=== PATIENT | male | born 1940 | race Two or more races ===

== ENCOUNTER 2020-09-17 11:55 | Outpatient (REF) | payer MEDICARE, SELFPAY ==
[2020-09-17 13:42] LABS: Prostate Specific Antigen < 0.05 ng/mL (<0.05-4.0)
== END 2020-09-17 11:56 | disposition home or self-care (01) ==
LOC: HO.LAB 11:55
PROVIDERS: PCP Internal Medicine; Visit Provider Urology
DX: C61 Malignant neoplasm of prostate (principal); Z12.5 Encounter for screening for malignant neoplasm of prostate
CPT/HCPCS: 36415; 84153

== ENCOUNTER → 2020-09-20 12:55 | Outpatient (BNVA) | payer MEDICARE, SELFPAY | PROVIDERS: Visit Provider Urology | DX: C61 Malignant neoplasm of prostate (principal) | CPT/HCPCS: 99212 ==

== ENCOUNTER 2020-11-12 10:07 | Outpatient (REF) | payer MEDICARE, SELFPAY ==
[2020-11-12 10:39] LABS: MANUAL DIFF FLAG NO
[2020-11-12 10:46] LABS: Basophils Percent Auto 0.4 % (0-2); Eosinophils Absolute Auto 0.1 X10*3/uL (0.0-0.4); Eosinophils Percent Auto 2.7 % (0-4); Hematocrit 37.7 % (42-52); Hemoglobin 11.7 g/dl (14.0-18.0); Imm Gran Abs Auto 0.11 X10*3/uL (0.00-0.03); Imm Gran Pct Auto 2.3 % (0.0-0.4); Lymphocytes Absolute Auto 2.7 X10*3/uL (1.2-4.9); Lymphocytes Percent Auto 56.2 % (20-40); Mean Corpuscular Hemoglobin 27.4 pg (27.0-33.0); Mean Corpuscular Volume 88.3 fL (80-98); Mean Platelet Volume 10.5 fL (9.4-12.4); Monocytes Absolute Auto 0.8 X10*3/uL (0.1-1.2); Monocytes Percent Auto 17.1 % (2-11); Neutrophils Percent Auto 21.3 % (45-73); Platelet Count 163 X10*3/uL (160-400); Red Blood Count 4.27 X10*6/uL (4.60-5.80); Red Cell Distribution Width 13.4 % (11.0-16.0); White Blood Count 4.8 X10*3/uL (4.8-10.8)
[2020-11-12 11:16] LABS: Anion Gap 13 (12-20); Blood Urea Nitrogen 10 mg/dL (9-16); Calcium 9.2 mg/dL (8.4-10.2); Carbon Dioxide 25 mmol/L (22-29); Chloride 103 mmol/L (96-108); Estimated Glomerular Filt Rate > 60; Sodium 137 mmol/L (135-145)
[2020-11-12 11:45] LABS: Renal w Reflex Lab Use Only Order verified
== END 2020-11-12 10:08 | disposition home or self-care (01) ==
LOC: HO.LAB 10:07
PROVIDERS: PCP Internal Medicine; Visit Provider Internal Medicine Nephrology
DX: I12.9 Hypertensive chronic kidney disease with stage 1 through stage 4 chronic kidney disease, or unspecified chronic kidney disease (principal); N18.30 Chronic kidney disease, stage 3 unspecified
CPT/HCPCS: 36415; 80051; 82310; 82565; 84100; 84520; 85025

== ENCOUNTER 2021-03-18 14:40 | Outpatient (REF) | payer MEDICARE, SELFPAY ==
[2021-03-18 16:18] LABS: Prostate Specific Antigen < 0.05 ng/mL (<0.05-4.0)
== END 2021-03-18 14:41 | disposition home or self-care (01) ==
LOC: HO.LAB 14:40
PROVIDERS: PCP Internal Medicine; Visit Provider Urology
DX: Z12.5 Encounter for screening for malignant neoplasm of prostate (principal); C61 Malignant neoplasm of prostate
CPT/HCPCS: 36415; 84153

== ENCOUNTER → 2021-03-22 12:51 | Outpatient (BNVA) | payer MEDICARE, SELFPAY | PROVIDERS: Visit Provider Urology | DX: C61 Malignant neoplasm of prostate (principal) | CPT/HCPCS: 51798; 99212 ==

== ENCOUNTER 2021-05-20 12:52 | Outpatient (REF) | payer MEDICARE, SELFPAY ==
[2021-05-20 13:58] LABS: Hematocrit 36.4 % (42-52); Hemoglobin 11.5 g/dl (14.0-18.0); Mean Corpuscular HGB Conc 31.6 g/dl (31.0-36.0); Mean Corpuscular Hemoglobin 27.4 pg (27.0-33.0); Mean Corpuscular Volume 86.9 fL (80-98); Platelet Count 197 X10*3/uL (160-400); Red Blood Count 4.19 X10*6/uL (4.60-5.80); Red Cell Distribution Width 13.8 % (11.0-16.0); White Blood Count 6.2 X10*3/uL (4.8-10.8)
[2021-05-20 14:18] LABS: Anion Gap 11 (12-20); Blood Urea Nitrogen 9 mg/dL (9-16); Calcium 9.3 mg/dL (8.4-10.2); Carbon Dioxide 23 mmol/L (22-29); Chloride 103 mmol/L (96-108); Estimated Glomerular Filt Rate > 60; Potassium 3.9 mmol/L (3.3-5.1); Sodium 133 mmol/L (135-145)
[2021-05-20 18:30] LABS: Microalbum/Creatinine Ratio Ur 15.5 ug/mg cr; Protein/Creatinine Ratio, Ur 0.06 (<0.2); Total Protein Urine Random 9 mg/dL (<12)
[2021-05-21 16:16] LABS: Calcium (PTHI) 9.5 mg/dL (8.6-10.3); PTHI 29 pg/mL (14-64)
== END 2021-05-20 12:53 | disposition home or self-care (01) ==
LOC: HO.LAB 12:52
PROVIDERS: PCP Internal Medicine; Visit Provider Internal Medicine Nephrology
DX: I10 Essential (primary) hypertension (principal); N18.31 Chronic kidney disease, stage 3a
CPT/HCPCS: 36415; 80051; 82043; 82310; 82565; 83970; 84156; 84520; 85027

== ENCOUNTER 2021-09-23 10:27 | Outpatient (REF) | payer MEDICARE, SELFPAY ==
[2021-09-23 11:49] LABS: Prostate Specific Antigen < 0.05 ng/mL (<0.05-4.0)
== END 2021-09-23 10:28 | disposition home or self-care (01) ==
LOC: HO.LAB 10:27
PROVIDERS: PCP Internal Medicine; Visit Provider Urology
DX: Z12.5 Encounter for screening for malignant neoplasm of prostate (principal); C61 Malignant neoplasm of prostate
CPT/HCPCS: 36415; 84153

== ENCOUNTER → 2021-11-22 13:50 | Outpatient (BNVA) | payer MEDICARE, SELFPAY | PROVIDERS: PCP Internal Medicine; Visit Provider Urology | DX: C61 Malignant neoplasm of prostate (principal) | CPT/HCPCS: 99212 ==

== ENCOUNTER 2022-01-06 11:04 | Outpatient (REF) | payer MEDICARE, SELFPAY ==
[2022-01-06 12:12] LABS: Anion Gap 11 (12-20); Blood Urea Nitrogen 10 mg/dL (9-16); Calcium 9.5 mg/dL (8.4-10.2); Carbon Dioxide 23 mmol/L (22-29); Chloride 105 mmol/L (96-108); Estimated Glomerular Filt Rate 59; Potassium 3.7 mmol/L (3.3-5.1); Sodium 135 mmol/L (135-145)
[2022-01-06 12:47] LABS: Creatinine Urine 150.71 mg/dL; Protein/Creatinine Ratio, Ur 0.08 (<0.2); Total Protein Urine Random 12 mg/dL (<12)
== END 2022-01-06 11:05 | disposition home or self-care (01) ==
LOC: HO.LAB 11:04
PROVIDERS: PCP Internal Medicine; Visit Provider Internal Medicine Nephrology
DX: I10 Essential (primary) hypertension (principal); N18.31 Chronic kidney disease, stage 3a
CPT/HCPCS: 36415; 80051; 82310; 82565; 84156; 84520

== ENCOUNTER 2022-06-24 12:53 | Emergency (ER) | payer MEDICARE, SELFPAY ==
--- NOTE | ~2022-06-24 | XR_ITS ---
EXAMINATION: XR KNEE, LEFT CLINICAL INFORMATION: Swelling COMPARISON: None TECHNIQUE: Four views of the left knee. FINDINGS: Advanced lateral joint space narrowing with marginal spurring. Moderate medial joint space noted. Moderate joint effusion. There is patellofemoral arthritic changes well. No fracture or destructive process. Alignment preserved. XR/XR knee LT 2V IMPRESSION: Multi compartmental degenerative change.
[2022-06-24 13:32] VITALS: BP 139/70; PULSE 97; RESP 18; TEMP 37.1; O2SAT 97
[2022-06-24 13:36] VITALS: BP 140/28; PULSE 96; O2SAT 97
--- NOTE | 2022-06-24 13:43 | ED_ITS ---
HPI - Extremity Injury (Lower) General Chief Complaint: Extremity Injury, Lower <Nadya Samayoa MD - Last Filed: 06/24/22 16:21> Stated Complaint: L KNEE SWELLING,NO INJURY <Nadya Samayoa MD - Last Filed: 06/24/22 16:21> Time Seen by Provider: 06/24/22 13:30 <Nadya Samayoa MD - Last Filed: 06/24/22 16:21> Source: patient and family <Nadya Samayoa MD - Last Filed: 06/24/22 16:21> Mode of arrival: EMS <Nadya Samayoa MD - Last Filed: 06/24/22 16:21> History of Present Illness HPI Narrative: 82-year-old male with history of hypertension presents via EMS with worsening left knee swelling and pain and he denies any traumatic injury but states that this has happened previously. Patient denies any fever, chills and is unsure about any history of gout. <Nadya Samayoa MD - Last Filed: 06/24/22 16:21> Related Data Home Medications: Home Medications Medication Instructions Recorded Confirmed amlodipine 5 mg tablet 5 mg PO DAILY 11/22/21 ferrous sulfate 325 mg (65 mg 325 mg PO BID 11/22/21 iron) tablet (FeroSul) <Nadya Samayoa MD - Last Filed: 06/24/22 16:21> Allergies/Adverse Reactions: Allergies Allergy/AdvReac Type Severity Reaction Status Date / Time Penicillins [PENICILLINS] Allergy Severe EYES Verified 11/22/21 13:57 SWELLING penicillin V Allergy Unknown rash Verified 11/22/21 13:57 <Nadya Samayoa MD - Last Filed: 06/24/22 16:21> Review of Systems Review of Systems: Pertinent positives and negatives as stated in HPI 10 point review of systems is otherwise negative. <Nadya Samayoa MD - Last Filed: 06/24/22 16:21> [facility] Past Medical History Source: nursing notes reviewed <Nadya Samayoa MD - Last Filed: 06/24/22 16:21> Medical History: Medical History BPH (benign prostatic hyperplasia) Prostate cancer Prostate cancer <Nadya Samayoa MD - Last Filed: 06/24/22 16:21> Surgical History: Surgical History History of prostate surgery <Nadya Samayoa MD - Last Filed: 06/24/22 16:21> Social History Social History: Social History Advance Directives: No Advance Directives Information Provided: Yes <Nadya Samayoa MD - Last Filed: 06/24/22 16:21> Physical Exam Vital Signs: Vital Signs: Last Vital Signs Temp 98.7 F 06/24/22 13:32 Pulse 97 06/24/22 13:32 Resp 18 06/24/22 13:32 BP 139/70 06/24/22 13:32 Pulse Ox 97 06/24/22 13:32 O2 Del Method 06/24/22 13:32 BMI result Body Mass Index 0.0 VITAL SIGNS: Reviewed. GENERAL: Well developed, well nourished, in no acute distress. HEAD: Normocephalic/atraumatic EYES: PERRLA, EOMI EARS: Ext canals without abnormality OROPHARYNX: no oral lesions noted, posterior pharynx clear LUNGS: Normal breath sounds. No adventitious sounds or accessory muscle use. SpO2<97> CARDIOVASCULAR: Regular rate and rhythm without noted murmurs ABDOMEN: Soft, non-tender, non-distended with bowel sounds. MUSCULOSKELETAL: No tenderness, deformities, but large left knee effusion without erythema but tenderness to palpation and noted tactile warmth EXTREMITIES: No cyanosis, clubbing or edema. SKIN: Inspection of the skin reveals no rashes NEUROLOGIC: Alert and oriented x 4. Strength and sensation to light touch were grossly intact x 4. <Nadya Samayoa MD - Last Filed: 06/24/22 16:21> Vital Signs: Last Vital Signs Temp 98.7 F 06/24/22 13:32 Pulse 97 06/24/22 13:32 Resp 18 06/24/22 13:32 BP 139/70 06/24/22 13:32 Pulse Ox 97 06/24/22 13:32 O2 Del Method 06/24/22 13:32 BMI result Body Mass Index 0.0 <PASTORA Wiseman - Last Filed: 06/24/22 14:42> Course Course Course Narrative: 82-year-old male with history and clinical presentation most consistent w ith knee effusion related to underlying arthritis and low clinical suspicion for septic or gout etiology. Will obtain imaging and then drain. Large effusion noted on imaging, midlevel provider aspirated 61 cc from the patient's knee and applied a compression dressing. <Nadya Samayoa MD - Last Filed: 06/24/22 16:21> MDM - Extremity Injury (Lower) Lab Data Labs: Lab Results 06/24/22 Range/Units 14:51 Synovial Source L knee Synovial WBC 58.160 X10*3/uL Synovial RBC 0.004 X10*6/uL Synovial Neutrophils 95 % Synovial Lymphocytes 5 % <Nadya Samayoa MD - Last Filed: 06/24/22 16:21> Lab Results 06/24/22 Range/Units 14:51 Synovial Source L knee Synovial WBC 58.160 X10*3/uL Synovial RBC 0.004 X10*6/uL Synovial Neutrophils 95 % Synovial Lymphocytes 5 % <PASTORA Wiseman - Last Filed: 06/24/22 14:42> Procedures Joint Aspiration/Injection Joint Asp./Inject. 1: Time Out Performed: Yes <PASTORA Wiseman - Last Filed: 06/24/22 14:42> Side of body: left <PSATORA Wiseman - Last Filed: 06/24/22 14:42> Joint Aspirated: knee <PASTORA Wiseman - Last Filed: 06/24/22 14:42> Ultrasound Guidance: Yes <PASTORA Wiseman - Last Filed: 06/24/22 14:42> Local Anesthetic: lidocaine 1% <PASTORA Wiseman - Last Filed: 06/24/22 14:42> Amount of anesthesia used (mL): 4 <PASTORA Wiseman - Last Filed: 06/24/22 14:42> Needle Size Used: 18G <PASTORA Wiseman - Last Filed: 06/24/22 14:42> Fluid Obtained: clear <PASTORA Wiseman - Last Filed: 06/24/22 14:42> Total fluid obtained (mL): 61 <PASTORA Wiseman - Last Filed: 06/24/22 14:42> Patient Tolerated Procedure: well and no complications <PASTORA Wiseman - Last Filed: 06/24/22 14:42> Complications: none <PASTORA Wiseman - Last Filed: 06/24/22 14:42> Discharge Plan Discharge Clinical Impression: Effusion of knee joint, left <Nadya Samayoa MD - Last Filed: 06/24/22 16:21> Patient Disposition: Home, Self-Care <Nadya Samayoa MD - Last Filed: 06/24/22 16:21> Instructions: Swollen Knee Joint (ED) <Nadya Samayoa MD - Last Filed: 06/24/22 16:21> Additional Instructions: You have no fractures, you had a large amount of fluid on your knee which was removed. Keep Mauro wrap on for comfort/compression, please have close follow-up with [facility]. Ice. If symptoms persist or worsen, area begins look infected, is increasingly swollen return to the emergency department <Nadya Samayoa MD - Last Filed: 06/24/22 16:21> Prescriptions: No Action amlodipine 5 mg tablet 5 mg PO DAILY ferrous sulfate [FeroSul] 325 mg (65 mg iron) tablet 325 mg PO BID <Nadya Samayoa MD - Last Filed: 06/24/22 16:21> Referrals: [facility] [place] Orthopedic Surgeons [Provider Group] - 5 days <Nadya Samayoa MD - Last Filed: 06/24/22 16:21>
[2022-06-24] MEDS: Lidocaine HCl 1 % MPF 5 ML VIAL INFILTRATI (14:12)
[2022-06-24 15:00] LABS: Source Synovial Fluid L knee
[2022-06-24] MEDS: Lidocaine HCl 2 % MPF 5 ML VIAL INFILTRATI (15:32)
[2022-06-24] MEDS: Triamcinolone Acetonide 40 MG/ML VIAL 10 MG INTRAARTIC (15:32)
[2022-06-24 15:54] LABS: BF Shift QC OK YES; Man Diluent Bkgrd OK YES; RBC Synovial Fluid 0.004 X10*6/uL
[2022-06-24 15:55] LABS: MN% 9.7 %; PMN% 90.3 %
[2022-06-24 16:17] LABS: Lymphocytes Synovial Fluid 5 %; Neutrophils Synovial Fluid 95 %
[2022-06-25 00:28] LABS: Glucose Synovial Fluid 39 MG/DL; Total Protein Synovial Fluid 5.3 GM/DL
== END 2022-06-24 17:21 | disposition home or self-care (01) ==
PROVIDERS: Physician Assistant; Emergency Provider Student in an Organized Health Care Education/Training Program; PCP Internal Medicine
DX: M25.462 Effusion, left knee (principal); M25.562 Pain in left knee; M79.662 Pain in left lower leg
CPT/HCPCS: 20611; 73560; 82945; 84157; 87070; 87073; 87205; 89051; 89060; 99282; 99285; J3300

== ENCOUNTER 2022-07-07 10:16 | Outpatient (REF) | payer MEDICARE, SELFPAY ==
[2022-07-07 10:43] LABS: MANUAL DIFF FLAG NO
[2022-07-07 11:38] LABS: Basophils Percent Auto 0.2 % (0-2); Eosinophils Percent Auto 0.3 % (0-4); Hematocrit 36.9 % (42.0-52.0); Hemoglobin 11.6 g/dl (14.0-18.0); Imm Gran Pct Auto 1.6 % (0.0-0.4); Lymphocytes Absolute Auto 2.9 X10*3/uL (1.2-4.9); Lymphocytes Percent Auto 46.7 % (20-40); Mean Corpuscular HGB Conc 31.4 g/dl (31.0-36.0); Mean Corpuscular Hemoglobin 27.3 pg (27.0-33.0); Mean Corpuscular Volume 86.8 fL (80.0-98.0); Mean Platelet Volume 11.2 fL (9.4-12.4); Monocytes Absolute Auto 1.1 X10*3/uL (0.1-1.2); Monocytes Percent Auto 17.5 % (2-11); Neutrophils Absolute Auto 2.1 x10*3/uL (2.0-8.3); Neutrophils Percent Auto 33.7 % (45-73); Platelet Count 173 X10*3/uL (160-400); Red Blood Count 4.25 X10*6/uL (4.60-5.80); Red Cell Distribution Width 14.3 % (11.0-16.0); White Blood Count 6.2 X10*3/uL (4.8-10.8)
[2022-07-07 12:48] LABS: Creatinine Urine 123.67 mg/dL; Total Protein Urine Random < 7 mg/dL (<12)
[2022-07-07 13:03] LABS: Anion Gap 15 (12-20); Blood Urea Nitrogen 10 mg/dL (9-16); Carbon Dioxide 21 mmol/L (22-29); Chloride 104 mmol/L (96-108); Estimated Glomerular Filt Rate > 60; Phosphorus 3.4 mg/dL (2.7-4.5); Potassium 4.2 mmol/L (3.3-5.1); Sodium 136 mmol/L (135-145)
[2022-07-07 13:58] LABS: Vitamin D 25-OH Total 42.2 ng/mL (>30)
[2022-07-08 12:16] LABS: PTHI 29 pg/mL (16-77)
== END 2022-07-07 10:17 | disposition home or self-care (01) ==
LOC: HO.LAB 10:16
PROVIDERS: PCP Internal Medicine; Visit Provider Internal Medicine Nephrology
DX: I12.9 Hypertensive chronic kidney disease with stage 1 through stage 4 chronic kidney disease, or unspecified chronic kidney disease (principal); N18.31 Chronic kidney disease, stage 3a
CPT/HCPCS: 36415; 80051; 82306; 82310; 82565; 83970; 84100; 84156; 84520; 85025

== ENCOUNTER 2022-07-17 10:04 | Emergency (ER) | payer MEDICARE, SELFPAY ==
[2022-07-17 10:14] VITALS: BP 129/76; BP 156/76; PULSE 107; PULSE 80; RESP 20; TEMP 36.6; O2SAT 97; O2SAT 98; BMI 25.5
--- NOTE | 2022-07-17 10:28 | ED.LOWEXIN ---
HPI - Extremity Injury (Lower) General Chief Complaint: Extremity Injury, Lower Stated Complaint: LT KNEE PAIN Source: patient Mode of arrival: EMS Limitations: no limitations History of Present Illness HPI Narrative: Patient with left knee pain. he had an effusion drained 3 weeks ago. Relieving factors: nothing Exacerbating factors: weight bearing Related Data Home Medications Medication Instructions Recorded Confirmed amlodipine 5 mg tablet 5 mg PO DAILY 11/22/21 ferrous sulfate 325 mg (65 mg 325 mg PO BID 11/22/21 iron) tablet (FeroSul) Previous Rx's Medication Instructions Recorded celecoxib 50 mg capsule (Celebrex) 50 mg PO DAILY #20 caps 07/17/22 Allergies Allergy/AdvReac Type Severity Reaction Status Date / Time Penicillins [PENICILLINS] Allergy Severe EYES Verified 11/22/21 13:57 SWELLING penicillin V Allergy Unknown rash Verified 11/22/21 13:57 Review of Systems Review of Systems: Yes all other systems are reviewed and are negative Neurologic: Denies Sensory deficit (Neuro) [facility] Past Medical History Medical History BPH (benign prostatic hyperplasia) Prostate cancer Prostate cancer Surgical History History of prostate surgery Social History Social History Alcohol intake: former Smoked in Last 30 Days: No Use of substances other than those prescribed or required for medical reasons: No Advance Directives: No Advance Directives Information Provided: Yes Physical Exam Vital Signs: Vital Signs: Last Vital Signs Temp 97.9 F 07/17/22 10:14 Pulse 107 H 07/17/22 10:14 Resp 20 07/17/22 10:14 BP 129/76 07/17/22 10:14 Pulse Ox 98 07/17/22 10:14 O2 Del Method 07/17/22 10:14 BMI result Body Mass Index 25.5 Const: Other: frail elderly male, very rigid Orientation/consciousness: oriented to person and patient oriented x3 Limitations: no limitations HEENT: Head: Yes normal to inspection Ears: external ears normal General nose exam: Normal external nose present Mouth: Normal oral and palatal mucosa present and oropharynx normal Throat: Yes posterior oropharynx normal Eyes: General: appearance normal, both eyes and all related structures Neck: Other: supple Neck: Yes normal visual inspection Chest: Chest palpation & inspection: normal inspection of the chest Resp: Auscultation: clear to auscultation bilaterally Cardio: Jugular venous distension: no JVD Rate: regular rate Rhythm: regular rhythm Heart sounds: S1 normal heart sound present and S2 normal heart sound present GI: Inspection: Yes normal to inspection Palpation (GI): Soft to palpation, nontender and No hepatosplenomegaly present Auscultation: normal bowel sounds : General: Yes no CVA tenderness Back/Spine/Pelvis: Back: no CVA tenderness Skin: General skin exam: no rashes or lesions noted Neuro: Other: patient overall rigid, stiff debilitated General: oriented to person and patient oriented x3 Cranial nerves: Yes CN's II-XII intact bilaterally Motor exam (neuro): 5/5 motor strength present throughout Sensory Exam: No Sensory deficit (Neuro) Extrem: Other: left knee with effusion, no erythema, no warmth. Psych: Appearance: grossly normal Course Reevaluation(s) Reevaluation #1: knee effusion did not show infection or crystals, will start low dose NSAIDs and refer to ortho Time: 10:47 Discharge Plan Discharge Clinical Impression: Effusion of knee Patient Disposition: Home, Self-Care Instructions: Swollen Knee Joint (ED) Prescriptions: New celecoxib [Celebrex] 50 mg capsule 50 mg PO DAILY Qty: 20 0RF No Action amlodipine 5 mg tablet 5 mg PO DAILY ferrous sulfate [FeroSul] 325 mg (65 mg iron) tablet 325 mg PO BID Referrals: Calvin Garcia PA-C [Physician [facility]] - 5 days
[2022-07-17 10:47] VITALS: BP 105/56; PULSE 103; RESP 18; TEMP 37.1; O2SAT 95
[2022-07-17 10:53] VITALS: BP 114/66; PULSE 102; RESP 20; O2SAT 99
[2022-07-17] MEDS: Ketorolac Tromethamine 30 MG/ML VIAL IM (10:55)
== END 2022-07-17 11:37 | disposition home or self-care (01) ==
PROVIDERS: Emergency Provider Emergency Medicine; PCP Internal Medicine
DX: M25.462 Effusion, left knee (principal); M25.562 Pain in left knee
CPT/HCPCS: 96372; 99284; J1885

== ENCOUNTER 2022-09-01 08:47 | Outpatient (REF) | payer MEDICARE, SELFPAY | END 2022-09-01 08:48 | disposition home or self-care (01) | LOC: HO.HOSX 08:47 | PROVIDERS: Visit Provider Orthopaedic Surgery | DX: Z13.89 Encounter for screening for other disorder (principal) ==

== ENCOUNTER 2024-06-08 11:06 | Outpatient (REF) | payer MEDICARE, SELFPAY ==
[2024-06-08 14:28] LABS: Basophils Percent Auto 0.5 % (0-2); Eosinophils Absolute Auto 0.1 X10*3/uL (0.0-0.4); Eosinophils Percent Auto 3.5 % (0-4); Hematocrit 35.3 % (42.0-52.0); Hemoglobin 11.6 g/dl (14.0-18.0); Imm Gran Abs Auto 0.05 X10*3/uL (0.00-0.03); Imm Gran Pct Auto 1.2 % (0.0-0.4); Lymphocytes Absolute Auto 2.1 X10*3/uL (1.2-4.9); MANUAL DIFF FLAG SCAN; Mean Corpuscular HGB Conc 32.9 g/dl (31.0-36.0); Mean Corpuscular Hemoglobin 27.5 pg (27.0-33.0); Mean Corpuscular Volume 83.6 fL (80.0-98.0); Mean Platelet Volume 11.5 fL (9.4-12.4); Monocytes Absolute Auto 0.8 X10*3/uL (0.1-1.2); Monocytes Percent Auto 18.7 % (2-11); Neutrophils Absolute Auto 0.9 x10*3/uL (2.0-8.3); Neutrophils Percent Auto 23.1 % (45-73); Platelet Count 146 X10*3/uL (160-400); Red Blood Count 4.22 X10*6/uL (4.60-5.80); Red Cell Distribution Width 14.5 % (11.0-16.0); SCAN SMEAR FLAG 1
[2024-06-08 14:50] LABS: Alanine Aminotransferase 9 U/L (0-40); Albumin Level 4.1 g/dL (3.5-5.0); Alkaline Phosphatase 49 U/L (39-117); Anion Gap 11 (12-20); Aspartate Amino Transferase 18 U/L (5-37); Bilirubin Total 0.5 mg/dL (0.0-1.0); Blood Urea Nitrogen 10 mg/dL (9-16); Calcium 9.4 mg/dL (8.4-10.2); Carbon Dioxide 24 mmol/L (22-29); Chloride 100 mmol/L (96-108); Cholesterol 172 mg/dL (<200); Estimated Glomerular Filt Rate > 60; Glucose Random 114 mg/dL (60-115); HDL Cholesterol 31 mg/dL (>40); LDL Cholesterol Calculated 104 mg/dL (<100); Potassium 3.9 mmol/L (3.3-5.1); Sodium 131 mmol/L (135-145); Total Protein 7.8 g/dL (6.5-8.0); Triglycerides 189 mg/dL (<150)
[2024-06-08 15:08] LABS: TSH reflex Free T4 4.92 uIU/mL (0.32-4.0); Vitamin D 25-OH Total 47.1 ng/mL (>30)
[2024-06-08 15:13] LABS: SLIDE REVIEW VERIFIED; Vitamin B12 350 pg/mL (200-900)
[2024-06-08 15:39] LABS: Free T4 (Free Thyroxine) 0.56 ng/dL (0.71-1.85)
== END 2024-06-08 11:07 | disposition home or self-care (01) ==
LOC: HO.CHCLDS 11:06
PROVIDERS: Visit Provider Internal Medicine
DX: I10 Essential (primary) hypertension (principal); E78.00 Pure hypercholesterolemia, unspecified; N18.31 Chronic kidney disease, stage 3a
CPT/HCPCS: 36415; 80053; 80061; 82306; 82607; 82746; 84439; 84443; 85025

== ENCOUNTER 2024-06-27 14:02 | Outpatient (AMB) | payer MEDICARE, SELFPAY ==
--- NOTE | 2024-06-27 14:04 | HO.NEPHOV_ITS ---
Vital Signs 06/27/24 14:12 Height 5 ft 9 in Weight 167 lb 6 oz BMI 24.7 BP 122/62 Blood Pressure Location Lt brachial Position Sitting Pulse 83 Pulse Source Pulse Oximeter Pulse Oximetry (%) 99 Oxygen Delivery Method Room Air Intake Visit Reasons: CKD-LVM Stripe Matcher Required: No Accompanied by: Son Allergies Penicillins [PENICILLINS] Allergy (Severe, Verified 06/27/24 14:09) EYES SWELLING penicillin V Allergy (Unknown, Verified 06/27/24 14:09) rash HPI Comments Details: Matteo is a delightful 84 year old gentleman with H/O CKD and hypertension. His BP is at goal. He has retired from work couple of years ago. He does not have any chest pain, shortness of breath, nausea, vomiting or orthostatic symptoms. He has no hematuria or active urinary symptoms. He maintains good hydration and avoids NSAID's. He is closely followed up by his PCP [facility] Medical History BPH (benign prostatic hyperplasia) Prostate cancer Prostate cancer Surgical History History of prostate surgery Social History (System 06/13/24 @ 10:46 by Rubina Gonzalez) Alcohol intake: former Review of Systems Const All systems reviewed & are unremarkable except as noted in HPI and below Physical Exam Const General: comfortable and no acute distress Orientation/consciousness: patient oriented x3 HEENT Head: Yes normocephalic Mouth: Normal oral and palatal mucosa present Eyes EOM: EOMs intact bilaterally Neck Neck: Yes supple Resp Auscultation: clear to auscultation bilaterally Cardio Jugular venous distension: no JVD Rate: regular rate GI Palpation (GI): Soft to palpation Auscultation: normal bowel sounds General: Yes no CVA tenderness Back/Spine/Pelvis Back: no CVA tenderness Skin General skin exam: no rashes or lesions noted Neuro General: patient oriented x3 and moves all extremities Extrem General: Yes no pedal edema Results Reviewed Nephrology Results: Hgb 11.6 g/dl (14.0-18.0) L 06/08/24 WBC 4.0 X10*3/uL (4.8-10.8) L 06/08/24 Plt Count 146 X10*3/uL (160-400) L 06/08/24 Sodium 131 mmol/L (135-145) L 06/08/24 Potassium 3.9 mmol/L (3.3-5.1) 06/08/24 Chloride 100 mmol/L (96-108) 06/08/24 Carbon Dioxide 24 mmol/L (22-29) 06/08/24 BUN 10 mg/dL (9-16) 06/08/24 Creatinine 0.96 mg/dL (0.5-1.4) 06/08/24 Calcium 9.4 mg/dL (8.4-10.2) 06/08/24 Phosphorus 3.4 mg/dL (2.7-4.5) 07/07/22 PTH Intact 29 pg/mL (16-77) 07/07/22 Urine Creatinine 123.67 mg/dL 07/07/22 Protein/Creatinin Ratio TNP 07/07/22 Assessment & Plan Assessment & Plan (1) CKD (chronic kidney disease) stage 2, GFR 60-89 ml/min: Code(s): N18.2 - Chronic kidney disease, stage 2 (mild) Category: Medical (2) Hypertension: Code(s): I10 - Essential (primary) hypertension Category: Medical Qualifiers: Hypertension type: unspecified Qualified Code(s): I10 - Essential (primary) hypertension (3) Hyponatremia: Code(s): E87.1 - Hypo-osmolality and hyponatremia Category: Medical Plan Matteo has CKD from vascular disease, hypertension and age related loss of renal function. He mostly has hypertensive nephrosclerosis at baseline. His serum creatinine has been stable. In the past, his renal USS and Doppler of his renal arteries were unremarkable. He is not on any ACEI/ARB. He maintains good hydration. He should avoid NSAID's. His BP is at goal. He needs to be on fluid restriction .I did not make any medication changes today. All questions answered. F/U appointment given Orders: Orders Creatinine Today E87.1 - Hypo-osmolality and hyponatremia Calcium Today E87.1 - Hypo-osmolality and hyponatremia TSH reflex Free T4 Today E87.1 - Hypo-osmolality and hyponatremia Blood Urea Nitrogen Today E87.1 - Hypo-osmolality and hyponatremia Electrolytes Today E87.1 - Hypo-osmolality and hyponatremia Immunofixation Pnl, Serum Today E87.1 - Hypo-osmolality and hyponatremia Coding Level of Care Code Est Pt Level 4 (05653) Diagnoses CKD (chronic kidney disease) stage 2, GFR 60-89 ml/min N18.2 Hypertension, unspecified type I10 Hypertension type: unspecified Hyponatremia E87.1
[2024-06-27 14:12] VITALS: BP 122/62; PULSE 83; O2SAT 99; BMI 24.7
== END 2024-06-27 14:31 | disposition home or self-care (01) ==
LOC: HO.HKA 14:02
PROVIDERS: PCP Internal Medicine; Referring Provider Internal Medicine; Visit Provider Internal Medicine Nephrology
DX: I12.9 Hypertensive chronic kidney disease with stage 1 through stage 4 chronic kidney disease, or unspecified chronic kidney disease (principal); N18.2 Chronic kidney disease, stage 2 (mild); E87.1 Hypo-osmolality and hyponatremia
CPT/HCPCS: 99214

== ENCOUNTER → 2024-06-27 14:02 | Outpatient (BNVA) | payer MEDICARE, SELFPAY | PROVIDERS: PCP Internal Medicine; Referring Provider Internal Medicine; Visit Provider Internal Medicine Nephrology | DX: I12.9 Hypertensive chronic kidney disease with stage 1 through stage 4 chronic kidney disease, or unspecified chronic kidney disease (principal); N18.2 Chronic kidney disease, stage 2 (mild); E87.1 Hypo-osmolality and hyponatremia | CPT/HCPCS: 99212 ==

== ENCOUNTER 2025-02-06 09:40 | Outpatient (REF) | payer MEDICARE, SELFPAY ==
--- OUTSIDE RECORDS SUMMARY | 2025-02-06 10:33 | XMS_ITS | Clinical Summary ---
Author Organization [facility] Address [address] [place] [address] Phone Care Team Providers Care Adaptive Physical Educator Name Role Phone Evan Dan MD Primary Care Provider Allergies Active Allergy Reactions Criticality Noted Date Comments Penicillins Other (see comments) 11/14/2020 Medications aspirin (ST EVE) 81 MG EC tablet Take 1 tablet by mouth 1 (one) time each day Active cholecalciferol (VITAMIN D-3) 25 MCG (1000 UT) capsule Take 1 capsule by mouth 1 (one) time each day 11/24/2014 Active amLODIPine (NORVASC) 5 MG tablet Take 1 tablet by mouth 1 (one) time each day 11/07/2020 Active FeroSul 325 (65 Fe) MG tablet TAKE 1 TABLET BY MOUTH TWICE DAILY 60 tablet 6 09/23/2021 Active Active Problems Problem Noted Date Diagnosed Date Hypertension 05/22/2021 Stage 3a chronic kidney disease 11/14/2020 Malignant hypertensive chronic kidney disease Family History Medical History Relation Comments Cancer Father Heart disease Mother Hypertension Mother Relation Status Comments Father Mother Social History Tobacco Use Types Packs/Day Years Used Date Smoking Tobacco: Never Smokeless Tobacco: Never Tobacco Cessation:Counseling Given: No Alcohol Use Standard Drinks/Week Comments No 0 (1 standard drink = 0.6 oz pur e alcohol) Sex and Gender Information Value Date Recorded Sex Assigned at Not on file Legal Sex Male 5:08 PM EST Gender Identity Not on file Sexual Orientation Not on file Last Filed Vital Signs Vital Sign Reading Time Taken Comments Blood Pressure 130/76 07/09/2022 12:54 PM EST Pulse 95 07/09/2022 12:54 PM EST Temperature - - Respiratory Rate - - Oxygen Saturation 100% 07/09/2022 12:54 PM EST Inhaled Oxygen Concentration - - Weight 78.3 kg (172 lb 9.6 oz) 07/09/2022 12:54 PM EST Height 175.3 cm (5' 9 ) 12/30/2019 12:00 PM EDT Body Mass Index 25.49 12/30/2019 12:00 PM EDT Plan of Treatment Health Maintenance Due Date Last Done Comments Pneumococcal Vaccine: 50+ Ye ars (1 of 2 - PCV) 1959 Influenza Vaccine (Season Ended) 2025 Hepatitis B Vaccine Aged Out No longe r eligible based on patient's age to complete this topic Insurance Medicare Medicare Care Teams Adaptive Physical Educator Relationship Specialty Start Date End Date Evan Dan MD [facility] - General 09/03/20
[2025-02-06 10:35] LABS: Immature Retic Fraction 5.8 % (2.3-13.4); Retic HGB Equivalent 30.9 pg (30.0-35.0); Reticulocyte Percent 1.2 % (0.5-1.8); Reticulocytes Absolute 0.049 X10*6/uL (0.026-0.095)
[2025-02-06 11:07] LABS: Anion Gap 11 (12-20); Blood Urea Nitrogen 14 mg/dL (9-16); Calcium 10.1 mg/dL (8.4-10.2); Carbon Dioxide 23 mmol/L (22-29); Chloride 99 mmol/L (96-108); Estimated Glomerular Filt Rate > 60; Iron 80 mcg/dL (45-160); Percent Iron Saturation 27 % (15-50); Potassium 4.1 mmol/L (3.3-5.1); Sodium 129 mmol/L (135-145); Total Iron Binding Capacity 293 mcg/dL (228-428); Unsaturated Iron Binding 213 ug/dL
[2025-02-06 11:22] LABS: Ferritin 32 ng/mL (20-250); TSH reflex Free T4 5.16 uIU/mL (0.32-4.0)
[2025-02-06 11:57] LABS: Free T4 (Free Thyroxine) 0.64 ng/dL (0.71-1.85)
[2025-02-08 10:09] LABS: IgA 444 mg/dL (70-320); IgG 2186 mg/dL (600-1540); IgM 49 mg/dL (50-300)
== END 2025-02-06 09:41 | disposition home or self-care (01) ==
LOC: HO.LAB 09:40
PROVIDERS: PCP Internal Medicine; Visit Provider Internal Medicine Nephrology
DX: D50.9 Iron deficiency anemia, unspecified (principal); R79.89 Other specified abnormal findings of blood chemistry; E04.9 Nontoxic goiter, unspecified; E87.1 Hypo-osmolality and hyponatremia
CPT/HCPCS: 36415; 80051; 82310; 82565; 82728; 82784; 83540; 84439; 84443; 84520; 85045; 86334

== ENCOUNTER 2025-02-15 15:16 | Outpatient (AMB) | payer MEDICARE, SELFPAY ==
[2025-02-15 15:15] VITALS: BP 115/60; PULSE 89; O2SAT 97; BMI 25.7
--- NOTE | 2025-02-15 15:15 | HO.NEPHOV_ITS ---
Vital Signs 02/15/25 15:15 Height 5 ft 9 in Weight 174 lb BMI 25.7 BP 115/60 Blood Pressure Location Lt brachial Position Sitting Pulse 89 Pulse Source Pulse Oximeter Pulse Oximetry (%) 97 Oxygen Delivery Method Room Air Intake Visit Reasons: CKD-LVM Intake Note: Patient here for a follow-up. Cell Feed Department Supervisor Required: No Accompanied by: Daughter Allergies Penicillins (PENICILLINS) Allergy (Severe, Verified 02/15/25 15:24) EYES SWELLING penicillin V Allergy (Unknown, Verified 02/15/25 15:24) rash Do you need a note to return to daycare/school/sports/work: No HPI Comments Details: Matteo is here for follow up of CKD and hypertension. His BP is at goal. He has retired from work at 80 years old and remains active. He does not have any chest pain, shortness of breath, nausea, vomiting or orthostatic symptoms. He has no hematuria or active urinary symptoms. He maintains good hydration and avoids NSAID's. He is closely followed up by his PCP. [facility] Medical History Prostate cancer Prostate cancer BPH (benign prostatic hyperplasia) Surgical History History of prostate surgery Social History Alcohol intake: former Review of Systems Const Reports no additional complaints ENT Reports no additional complaints Card Denies chest pain, Denies leg edema, Denies lightheadedness, Denies dyspnea and Denies orthopnea Resp Denies cough and Denies dyspnea GI Denies abdominal pain, Denies diarrhea, Denies nausea and Denies vomiting Denies oliguria, Denies difficulty urinating, Denies dysuria and Denies flank pain Musc Denies arthralgias and Denies joint swelling Skin/Breast Denies rash Physical Exam Vital Signs: Last Vital Signs Pulse 89 02/15/25 15:15 BP 115/60 02/15/25 15:15 Pulse Ox 97 02/15/25 15:15 Oxygen Delivery Method Room Air 02/15/25 15:15 BMI result Body Mass Index 25.7 Const General: comfortable and no acute distress Resp Effort & Inspection: normal respiratory effort and able to speak in complete sentences Auscultation: clear to auscultation bilaterally Cardio Rate: regular rate Rhythm: regular rhythm Heart sounds: S1 normal heart sound present and S2 normal heart sound present GI Palpation (GI): Soft to palpation and nontender General: Yes no CVA tenderness Back/Spine/Pelvis Back: no CVA tenderness Skin Rashes: no rashes Extrem General: No edema and No pedal edema Results Reviewed Nephrology Results: Hgb, (14.0-18.0) 11.6 g/dl L 06/08/24 WBC, (4.8-10.8) 4.0 X10*3/uL L 06/08/24 Plt Count, (160-400) 146 X10*3/uL L 06/08/24 Sodium, (135-145) 129 mmol/L L 02/06/25 Potassium, (3.3-5.1) 4.1 mmol/L 02/06/25 Chloride, (96-108) 99 mmol/L 02/06/25 Carbon Dioxide, (22-29) 23 mmol/L 02/06/25 BUN, (9-16) 14 mg/dL 02/06/25 Creatinine, (0.5-1.4) 0.91 mg/dL 02/06/25 Calcium, (8.4-10.2) 10.1 mg/dL Δ 02/06/25 Phosphorus, (2.7-4.5) 3.4 mg/dL 07/07/22 PTH Intact, (16-77) 29 pg/mL 07/07/22 Urine Creatinine 123.67 mg/dL 07/07/22 Protein/Creatinin Ratio TNP 07/07/22 Assessment & Plan Assessment & Plan (1) Hyponatremia: Code(s): E87.1 - Hypo-osmolality and hyponatremia Category: Medical (2) Hypertension: Code(s): I10 - Essential (primary) hypertension Category: Medical Qualifiers: Hypertension type: unspecified Qualified Code(s): I10 - Essential (primary) hypertension (3) CKD (chronic kidney disease) stage 2, GFR 60-89 ml/min: Code(s): N18.2 - Chronic kidney disease, stage 2 (mild) Category: Medical Plan Matteo has CKD from vascular disease, hypertension and age related loss of renal function- most likely hypertensive nephrosclerosis at baseline. his serum creatinine has been stable. In the past, his renal USS and Doppler of his renal arteries were unremarkable. His blood pressure is well-controlled. He is not on any ACEI/ARB. He maintains good hydration and avoids NSAIDs. hyponatremia- Will check urine osm and urine sodium I did not make any medication changes today. All questions answered. F/U evelin ointment given Orders: Orders Osmolality Urine Today E87.1 - Hypo-osmolality and hyponatremia Protein Creatinine Ratio, Ur 8 Months N18.2 - Chronic kidney disease, stage 2 (mild) UA w Microscopic 8 Months N18.2 - Chronic kidney disease, stage 2 (mild) Sodium Urine Random Today E87.1 - Hypo-osmolality and hyponatremia Basic Metabolic Panel 8 Months N18.30 - Chronic kidney disease, stage 3 unspecified Coding Level of Care Code Est Pt Level 3 (65418) Diagnoses Hyponatremia E87.1 Hypertension, unspecified type I10 Hypertension type: unspecified CKD (chronic kidney disease) stage 2, GFR 60-89 ml/min N18.2
--- OUTSIDE RECORDS SUMMARY | 2025-02-15 18:07 | XMS_ITS | Clinical Summary ---
Author Organization [facility] Address [address] [place] [address] Phone Care Team Providers Care Glass Setter Name Role Phone Evan Dan MD Primary [...] this topic Insurance Medicare Medicare Care Teams Glass Setter Relationship Specialty Start Date End Date Evan Dan MD [facility] - General 09/03/20
== END 2025-02-15 15:46 | disposition home or self-care (01) ==
LOC: HO.HKA 15:16
PROVIDERS: PCP Internal Medicine; Visit Provider Internal Medicine Nephrology
DX: E87.1 Hypo-osmolality and hyponatremia (principal); I12.9 Hypertensive chronic kidney disease with stage 1 through stage 4 chronic kidney disease, or unspecified chronic kidney disease; N18.2 Chronic kidney disease, stage 2 (mild)
CPT/HCPCS: 99213

== ENCOUNTER → 2025-02-15 15:16 | Outpatient (BNVA) | payer MEDICARE, SELFPAY | PROVIDERS: PCP Internal Medicine; Visit Provider Internal Medicine Nephrology | DX: E87.1 Hypo-osmolality and hyponatremia (principal); I12.9 Hypertensive chronic kidney disease with stage 1 through stage 4 chronic kidney disease, or unspecified chronic kidney disease; N18.2 Chronic kidney disease, stage 2 (mild) | CPT/HCPCS: 99212 ==